=== PATIENT | male | born 1985 | race Caucasian/White ===

== ENCOUNTER 2024-12-27 10:36 | Emergency (ER) | payer OTHER, SELFPAY ==
[2024-12-27 10:37] VITALS: BP 134/87; BP 144/94; PULSE 75; PULSE 78; RESP 14; TEMP 36.6; O2SAT 97; O2SAT 98; BMI 30.9
[2024-12-27 10:58] VITALS: BP 129/80; BP 132/96; BP 141/93; PULSE 70; PULSE 72; PULSE 82
--- NOTE | 2024-12-27 11:19 | CT_ITS ---
PROCEDURE: BRAIN/HEAD WITHOUT CONTRAST 12/27/2024 REASON FOR EXAM: EPISODIC DIZZINESS TECHNIQUE: BRAIN/HEAD WITHOUT CONTRAST Coronal and Sagittal reconstruction series were provided. One or more dose reduction techniques were used (e.g., Automated exposure control, adjustment of the mA and/or kV according to patient size, use of iterative reconstruction technique. RADIATION DOSE SUMMARY: CTDlvol: 47 mGy DLP: 855 mGycm COMPARISON: None FINDINGS: Brain: There is no evidence of hemorrhage, acute ischemia or mass. No extra- axial fluid collection, midline shift or mass effect. CSF Spaces: Normal Sinuses/Mastoids: Clear. Hywmnumv-af-hymur amount of cerumen is present in the external auditory canal on the right. Bones: Normal CT/Brain/Head without Contrast IMPRESSION: No acute intracranial abnormality. Gxikwkyn-hs-xaiwk amount of cerumen in the right external auditory canal. Reading Location: [id number]
--- NOTE | 2024-12-27 11:19 | EKG12_ITS ---
Test Reason : DIZZINESS Blood Pressure : */* mmHG Vent. Rate : 58 BPM Atrial Rate : 58 BPM P-R Int : 176 ms QRS Dur : 126 ms QT Int : 406 ms P-R-T Axes : 46 3 10 degrees QTcB Int : 398 ms Sinus bradycardia Non-specific intra-ventricular conduction block Abnormal ECG Confirmed by ANA NEWMAN, LAURA ([id number]), television news video editor RAFA MOONEY ([id number]) on 12/29/2024 6:51:17 AM Referred By: Confirmed By: LAURA PEREZ MD
--- NOTE | 2024-12-27 11:24 | EX.ED.DYSGE1 ---
HPI History of Present Illness Chief Complaint: Dizziness Narrative Narrative: Chief complaint and HPI: Positional dizziness. 39-year-old male with no significant past medical history presents for evaluation of positional dizziness. Onset of symptoms yesterday and progressively improving. Patient states he develops room spinning dizziness when he changes body position or turns his head too quickly. Not specific to a certain side. 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 He states he has been eating and drinking well. No history of this in the past. Currently not dizzy at rest. He denies any fever, chills, URI symptoms, headache, vision changes, hearing changes, chest pain, shortness of breath, numbness/tingling, weakness. Denies any trauma. Review of systems: See HPI Medications: As listed on the chart Allergies: As listed on the chart PFSH: Per chart Vital signs: As listed on the chart. Reviewed. Physical exam: Gen: A&O x3, NAD Head: Normocephalic, atraumatic Eyes: No sclera icterus, conjunctiva clear, PERRL, EOMI, no nystagmus at rest or with positional changes ENT: Moist mucous membranes, posterior oropharynx unremarkable, no facial asymmetry, right EAC impacted with cerumen therefore TM not able to be visualized, left TM unremarkable Neck: Trachea midline, No JVD, full range of motion CV: RRR, no murmurs, no peripheral edema Resp: Lungs CTA BL, no w/r/c GI: Abd soft, non-distended, non-tender, no r/r/g Musc: Full ROM, no deformity, strength +5/5 in all extremities, no ataxia Skin: Warm, dry, intact Neuro: Alert, oriented, grossly intact, sensation intact, no focal deficits Psych: Cooperative, appropriate mood and affect PFSH PFSH Medical History no medical history Home Medications ?Medication ?Instructions ?Recorded ?Last Taken ?Type meclizine 25 mg tablet 25 mg PO 4X/DAY PRN PRN Dizziness 12/27/24 Unknown Rx 3 days #12 tabs Allergy/AdvReac Type Severity Reaction Status Date / Time No Known Allergies Allergy Verified 12/27/24 10:38 Family History no significant family his Surgical History no surgical history Social History Smoking Status: Current every day smoker tobacco type: e-cigarettes EXAM Physical Exam Const Vital Signs: 12/27/24 10:37 12/27/24 10:37 12/27/24 10:58 Temperature 98 F Temperature Source Temporal Pulse Rate 75 78 Pulse Rate [Lying] 72 Pulse Rate [Sitting (for 1 minute prior to obtaining)] 70 Pulse Rate [Standing (for 1 minute prior to obtaining)] 82 Respiratory Rate 14 14 Blood Pressure 144/94 H 134/87 H Blood Pressure [Lying] 129/80 H Blood Pressure [Sitting (for 1 minute prior to obtaining)] 141/93 H Blood Pressure [Standing (for 1 minute prior to obtaining)] 132/96 H Blood Pressure Mean 110 102 Blood Pressure Mean [Lying] 96 Blood Pressure Mean [Sitting (for 1 minute prior to obtaining)] 109 Blood Pressure Mean [Standing (for 1 minute prior to obtaining)] 108 Pulse Ox 97 98 Oxygen Delivery Method Room Air Room Air 12/27/24 12:37 12/27/24 14:00 12/27/24 14:07 Temperature 98 F Temperature Source Pulse Rate 75 Pulse Rate [Lying] Pulse Rate [Sitting (for 1 minute prior to obtaining)] Pulse Rate [Standing (for 1 minute prior to obtaining)] Respiratory Rate 14 Blood Pressure 124/74 H 128/87 H 128/87 H Blood Pressure [Lying] Blood Pressure [Sitting (for 1 minute prior to obtaining)] Blood Pressure [Standing (for 1 minute prior to obtaining)] Blood Pressure Mean 90 100 100 Blood Pressure Mean [Lying] Blood Pressure Mean [Sitting (for 1 minute prior to obtaining)] Blood Pressure Mean [Standing (for 1 minute prior to obtaining)] Pulse Ox 96 96 Oxygen Delivery Method Room Air MDM MDM MDM Narrative Medical decision making narrative: 39-year-old male with no significant past medical history presents for evaluation of positional vertigo. No past medical history of vertigo. Denies any trauma. Denies any associated symptom. See physical exam findings. Differential diagnosis includes but is not limited to vertigo, BPPV, orthostatic hypotension, electrolyte abnormality, dehydration, low suspicion for any acute intracranial abnormality. Orthostatic vital signs were negative. I suspect more of a BPPV. However and unable to elicit any nystagmus on physical exam. NS bolus ordered with meclizine. Will obtain basic labs with CT of the brain. EKG reviewed see below. CBC unremarkable without leukocytosis or anemia. BMP unremarkable without significant electrolyte abnormality or MISSY. UA negative for UTI or ketones.CT of the head shows no acute intracranial abnormality. Agrees with physical exam that there is moderate to large amount of cerumen present in the external auditory canal of the right. Debrox drops ordered with ear irrigation. Patient states that his vertigo has improved. He is ambulated without difficulty. We were able to remove some of the cerumen however still impacted. Patient was sent off with Debrox drops and home irrigation kit. 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 Will send a short course of meclizine for recurrent vertigo. Return precautions explained. Follow-up with primary care physician. They confirmed understanding of plan. Patient stable to discharge home. EKG: Interpreted by me/EM physician: EKG shows sinus bradycardia. Heart rate 58 Impression: 1. Vertigo 2. Impacted cerumen of the right EAC Lab Data Labs: Laboratory Results - last 24 hr 12/27/24 12/27/24 10:50 11:59 WBC 8.6 RBC 5.13 Hgb 15.5 Hct 47.1 MCV 91.8 MCH 30.2 MCHC 32.9 RDW Std Deviation 41.9 RDW Coeff of Ila 12.3 Plt Count 302 MPV 9.7 Immature Gran % (Auto) 0.300 Neut % (Auto) 62.4 Lymph % (Auto) 26.0 [place] % (Auto) 8.7 Eos % (Auto) 2.3 Baso % (Auto) 0.3 Absolute Neuts (auto) 5.4 Absolute Lymphs (auto) 2.25 Nucleated RBC % 0 Sodium 140 Potassium 4.2 Chloride 104 Carbon Dioxide 23.8 Anion Gap 12 BUN 24 H Creatinine 1.11 Estim Creat Clear Calc 109.12 Est GFR (MDRD) Non-Af 87 BUN/Creatinine Ratio 21.3 H Glucose 83 Calcium 9.6 Urine Color Yellow Urine Clarity Clear Urine pH 6.0 Ur Specific Mora 1.020 Urine Protein 15 H Urine Glucose (UA) Normal Urine Ketones Negative Urine Occult Blood Negative Urine Nitrite Negative Urine Bilirubin Negative Urine Urobilinogen Normal Ur Leukocyte Esterase Negative Urine RBC 0 SEEN Urine WBC 0 SEEN Ur Squamous Epith Cells 0-5 SEEN Urine Bacteria 0 SEEN Urine Mucus 0 SEEN Radiography Diagnostic Testing: Clinical Impression(s) from Imaging Studies Brain CT 12/27/24 11:19 IMPRESSION: No acute intracranial abnormality. Ixcfcyoy-xy-emild amount of cerumen in the right external auditory canal. Reading Location: [id number] Discharge Plan Triage Chief Complaint: Dizziness ED Provider: Angel Mcleod Dx/Rx/DC Orders Clinical Impression: Vertigo Instructions: ED Vertigo, Unspecified Prescriptions: New meclizine 25 mg tablet 25 mg PO 4X/DAY PRN PRN (Reason: Dizziness) 3 Days Qty: 12 0RF Primary Care Provider: Care Physician,No Primary Referrals: Can Encarnacion MD [Med Staff - Active Staff] - 3-5 Days Activity Restrictions/Additional Instructions: Follow-up with your primary care physician. If you do not have a primary care physician follow-up with the one provided above. Recommend continuing the earwax thinning medication and irrigating. Meclizine as needed for recurrent vertigo. Return back to ED if symptoms change or worsen. Print Language: [place] Disposition Disposition: Home, Self Care Discharge Date/Time: 12/27/24 14:24
[2024-12-27] MEDS: 0.9% Normal Saline (1000mL) 1,000 ML 1000 ML IV (11:32)
[2024-12-27 11:41] LABS: Hematocrit 47.1 % (40-54); Hemoglobin 15.5 g/dL (13.0-16.5); Immature Granulocytes Count 0.030 X10^3/uL (0.0-0.0); Mean Corp Hgb Conc 32.9 g/dL (32-36); Mean Corpuscular Volume 91.8 fL (80-94); Mean Platelet Vol. 9.7 fl (6.2-12.0); NRBC Flagged by Analyzer 0 % (0-5); Platelet Count 302 K/mm3 (150-450); RBC Distribution Width CV 12.3 % (11.6-14.6); RBC Distribution Width SD 41.9 fl (35.1-43.9); Red Blood Count 5.13 M/mm3 (4.6-6.2); White Blood Count 8.6 K/mm3 (4.4-11.0)
[2024-12-27 11:55] LABS: Anion Gap 12 (5-15); BUN 24 mg/dL (4-19); BUN/Creat Ratio 21.3 RATIO (10-20); Calcium,Total 9.6 mg/dL (7.6-11.0); Carbon Dioxide 23.8 mmol/L (21.0-32.0); Chloride 104 mmol/L (98-108); Estimated Creatinine Clearance 109.12 ml/min (50-250); Glucose 83 mg/dL (70-99); Potassium 4.2 mmol/L (3.3-5.1)
[2024-12-27 12:08] LABS: Mucous, Urine 0 SEEN /hpf (<or=2+); Red Blood Cells-Urine 0 SEEN /hpf (0-5)
[2024-12-27 12:25] LABS: Color, Urine Yellow (Yellow); Glucose, Dipstick Normal (Normal); Ketone-Dipstick Negative (Negative); Leukocyte Esterase-Dipstick Negative /ul (Negative); Nitrite-Dipstick Negative (Negative); Occult Blood-Urine Negative /ul (Negative); Protein-Dipstick 15 mg/dl (Negative); Specific Gravity, Urine 1.020 (1.002-1.030); Urine Bilirubin Dipstick Negative (Negative)
[2024-12-27 12:33] LABS: Squamous Epithelial Cells - UA 0-5 SEEN /hpf (0-5)
[2024-12-27 12:37] VITALS: BP 124/74; O2SAT 96
[2024-12-27 14:00] VITALS: BP 128/87
[2024-12-27 14:07] VITALS: BP 128/87; PULSE 75; RESP 14; TEMP 36.6; O2SAT 96
== END 2024-12-27 14:24 | disposition home or self-care (01) ==
PROVIDERS: Emergency Provider Surgery; Visit Provider Surgery
DX: R42 Dizziness and giddiness (principal); F17.290 Nicotine dependence, other tobacco product, uncomplicated; H61.21 Impacted cerumen, right ear
CPT/HCPCS: 69209; 70450; 80048; 81001; 85025; 93005; 96360; 99285; A4216